=== PATIENT | female | born 1990 ===

== ENCOUNTER 2022-09-16 18:36 | Emergency (ER) | payer OTHER, BC ==
[~2022-09-16 18:36] MED LIST: Iopamidol-370 76% 500 ML 1 ML ONE
[2022-09-16 19:03] LABS: #Eosinphils 0.2 thou/uL (0.0-0.7); #Lymphocytes 2.7 thou/uL (1.20-3.40); #Monocytes 0.4 thou/uL (0.11-0.59); #Neutrophils 5.4 thou/uL (1.40-6.50); %Basophils 0.1 % (0.0-1.0); %Eosinophils 1.9 % (0.0-10.0); %Lymphocytes 30.8 % (21.0-51.0); %Monocytes 4.7 % (0.0-10.0); %Neutrophils 62.5 % (42.0-75.0); Mean Corpuscular HGB CONC 32.7 g/dL (32.0-36.0); Mean Corpuscular Hemoglobin 26.7 pg (27.0-31.0); Mean Corpuscular Volume 81.4 fl (78.0-98.0); Mean Platelet Volume 8.6 fL (7.4-10.4); Platelet Count 241 10x3/uL (130-400); RBC Distribution Width 13.5 % (11.5-14.5); Red Blood Cell (RBC) Count 4.52 mill/uL (4.20-5.40); White Blood Cell (WBC) Count 8.6 10x3/uL (4.8-10.8)
[2022-09-16] MEDS ORDERED: Morphine 4 MG/ML VIAL ONE (19:22)
[2022-09-16] MEDS ORDERED: Boostrix 0.5 ML (Tdap) VIAL (>/=7 yrs of age) ONE (19:22)
[2022-09-16 19:28] LABS: ALT (SGPT) 18 U/L (8-55); AST (SGOT) 30 U/L (5-34); Alkaline Phosphatase 36 U/L (40-110); Anion Gap 12 mmol/L (10-20); BUN (Urea Nitrogen) 9 mg/dL (7.0-18.7); Bilirubin, Total 0.2 mg/dL (0.2-1.2); Calc. Creatinine Clearance 0 mL/min (70-130); Calcium 8.5 mg/dL (7.8-10.44); Carbon Dioxide 21 mmol/L (22-29); Chloride 108 mmol/L (98-107); Estimated GFR 106; Globulin 3.3 g/dL (2.4-3.5); Glucose 119 mg/dL (70-105); Potassium 3.5 mmol/L (3.5-5.1); Protein, Total 7.3 g/dL (6.0-8.3); Sodium 137 mmol/L (136-145)
[2022-09-16] MEDS ORDERED: Ketorolac Tromethamine 30 MG/ML VIAL ONE (21:08)
[2022-09-16] MEDS ORDERED: traMADol HCl 50 MG TAB ONE (22:26)
[2022-09-16] MEDS ORDERED: Ondansetron ODT 4 MG TAB ONE (22:31)
== END 2022-09-16 22:55 | disposition home or self-care (01) ==
LOC: ERS 18:36
DX: S29.9XXA Unspecified injury of thorax, initial encounter (principal); S27.321A Contusion of lung, unilateral, initial encounter; S93.401A Sprain of unspecified ligament of right ankle, initial encounter; N83.9 Noninflammatory disorder of ovary, fallopian tube and broad ligament, unspecified; V89.2XXA Person injured in unspecified motor-vehicle accident, traffic, initial encounter; Z23 Encounter for immunization
CPT/HCPCS: 36415; 70450; 71045; 71260; 72125; 72170; 74177; 80053; 84702; 85025; 90471; 90715; 93005; 96374; G0390; J1885; J2270; Q0162; Q9967